=== PATIENT | female | born 2000 | race Caucasian/White ===

== ENCOUNTER 2020-03-06 16:34 | Emergency (ER) | payer OTHER, MEDICAID, SELFPAY ==
[2019-07-20 14:40] VITALS: BMI 18.2
[2020-03-06 16:36] VITALS: BP 124/62; PULSE 102; RESP 16; TEMP 36.3; O2SAT 100; BMI 20.5
--- NOTE | 2020-03-06 17:42 | ED.DCSUM_ITS ---
History of Present Illness Chief Complaint: Nausea/Vomiting Informant: Patient Narrative: Patient states she is approximately 6 weeks (G1, P0) who states that since yesterday she has had uncontrolled nausea and vomiting. No fevers. No rashes. She is scheduled to see RECEIVING CLERK for first appointment March 28. She states that she has tried crackers and fluids but continues to vomit. She did speak with her RECEIVING CLERK who referred her to emergency. Patient denies any vaginal bleeding pelvic pain or leakage of fluid. Past Medical History - Allergies and Home Meds Allergies/Adverse Reactions: Allergies No Known Allergies Allergy (Verified 03/06/20 16:36) Primary Care Physician: Carolina Trivedi MD [Primary Care Provider] - Past Medical History: None Surgical History: noncontributory Smoking Status: Never smoker Alcohol: None Drugs: None Review of Systems General: Denies: Chills, Fever, Sweats Eyes: Denies: Visual changes - bilaterally, Diplopia ENT: Denies: Rhinorrhea, Sore throat Cardiovascular: Denies: Chest pain, Palpitations Respiratory: Denies: Dyspnea, Cough, Dyspnea on exertion Gastrointestinal: Reports: Nausea, Vomiting. Denies: Abdominal pain, Diarrhea, Melena, Hematochezia Genitourinary: Denies: Dysuria, Hematuria, Frequency Musculoskeletal: Denies: Back pain, Extremity Pain Skin: Denies: Rash, Wounds Neurological: Denies: Headache, Weakness, Numbness Physical Exam Vital Signs/Narrative: Vital Signs Temp Pulse Resp BP Pulse Ox 03/06/20 16:36 97.4 F L 102 H 16 124/62 H 100 Inital Vital Signs reviewed: Yes General: Well nourished, Well developed, No Acute Distress Head: Normocephalic, Atraumatic Eyes: Perrl, EOMI ENT: Moist mucous membranes, No rhinorrhea Neck: Supple, Nontender Cardiovascular: Regular rate, No murmurs, Tachycardia Respiratory: No distress, CTA bilaterally, Chest nontender Abdomen: Soft, Nontender, Nondistended, Normal bowel sounds Back: Nontender, Normal Inspection Extremities: Nontender, No edema Skin: Normal color, No rash Neurological: Alert, Oriented x3, Cranial nerves II-XII grossly intact, Normal Strength, Normal Sensation Psychological: Normal affect, Normal Mood Diagnostic/Tx/Re-eval Laboratory Last Values Urine Color Yellow (Yellow) 03/06/20 18:38 Urine Clarity Cloudy (Clear) 03/06/20 18:38 Urine pH 6.0 (5.0 - 8.0) 03/06/20 18:38 Ur Specific [place] 1.020 (1.002-1.030) 03/06/20 18:38 Urine Protein 15 mg/dl (Negative) H 03/06/20 18:38 Urine Glucose (UA) Normal mg/dl (Normal) 03/06/20 18:38 Urine Ketones 150 mg/dl (Negative) H 03/06/20 18:38 Urine Occult Blood 10 /ul (Negative) H 03/06/20 18:38 Urine Nitrite Negative (Negative) 03/06/20 18:38 Urine Bilirubin Negative mg/dL (Negative) 03/06/20 18:38 Urine Urobilinogen Normal mg/dl (Normal) 03/06/20 18:38 Ur Leukocyte Esterase 25 /ul (Negative) H 03/06/20 18:38 Urine RBC 0 SEEN /hpf (0-5) 03/06/20 18:38 Urine WBC 0-5 SEEN /hpf (0-5) 03/06/20 18:38 Ur Squamous Epith Cells 10-25 SEEN /hpf (5-10) 03/06/20 18:38 Urine Bacteria 2+ /hpf (None Seen) 03/06/20 18:38 Urine Mucus 0 SEEN /hpf (<or=2+) 03/06/20 18:38 - Medical Decision Making The patient received Zofran and 2 L of IV fluids. She is tolerating fluids on repeat examination. I will write her Zofran for home. We talked about some of B6. She should follow-up with RECEIVING CLERK. ED Disposition - Plan for ED Patient: Disposition: Home or Assisted Living Diagnosis: Hyperemesis gravidarum Instructions: ED Preg Morning Sickness Prescriptions: Ondansetron [Zofran Odt] 4 mg PO Q6H PRN PRN #20 tab PRN Reason: Nausea Prescription Printed Referrals: Carolina Trivedi MD [Primary Care Provider] - As Needed Additional Instructions: You may try Unisom and B6 for nausea and vomiting.
[2020-03-06] MEDS: Ondansetron 4 MG/2 ML Vial IV (17:46)
[2020-03-06] MEDS: 0.9% Normal Saline 1,000 ML 1000 ML IV ×2 (17:46)
[2020-03-06 18:40] LABS: Mucous, Urine 0 SEEN /hpf (<or=2+); Red Blood Cells-Urine 0 SEEN /hpf (0-5)
[2020-03-06 18:50] LABS: Color, Urine Yellow (Yellow); Glucose, Dipstick Normal (Normal); Leukocyte Esterase-Dipstick 25 /ul (Negative); Nitrite-Dipstick Negative (Negative); Occult Blood-Urine 10 /ul (Negative); Protein-Dipstick 15 mg/dl (Negative); Urine Bilirubin Dipstick Negative (Negative); Urine Clarity Cloudy (Clear); Urine Urobilinogen Normal (Normal)
[2020-03-06 19:07] LABS: Ketone-Dipstick 150 mg/dl (Negative)
[2020-03-06 19:11] LABS: Bacteria 2+ /hpf (None Seen); Squamous Epithelial Cells - UA 10-25 SEEN /hpf (5-10); White Blood Cells 0-5 SEEN /hpf (0-5)
[2020-03-06 19:45] VITALS: RESP 16
== END 2020-03-06 19:57 | disposition home or self-care (01) ==
PROVIDERS: Emergency Provider Emergency Medicine; PCP Pediatrics
DX: O21.0 Mild hyperemesis gravidarum (principal); Z3A.01 Less than 8 weeks gestation of pregnancy
CPT/HCPCS: 81001; 96361; 96374; 99283; J7030; A4216; J2405

== ENCOUNTER 2020-10-23 06:50 | Inpatient (IN) | payer OTHER, MEDICAID, SELFPAY ==
[2020-10-23] VITALS (47 sets, daily range): BP systolic 126–177; BP diastolic 64–103; PULSE 51–206; RESP 16; TEMP 36.2–36.7; O2SAT 80–100; BMI 26.6
[2020-10-23 04:40] LABS: Color, Urine Yellow (Yellow); Glucose, Dipstick Normal (Normal); Ketone-Dipstick Negative (Negative); Leukocyte Esterase-Dipstick 25 /ul (Negative); Nitrite-Dipstick Negative (Negative); Occult Blood-Urine Negative /ul (Negative); Protein-Dipstick 100 mg/dl (Negative); Urine Bilirubin Dipstick Negative (Negative); Urine Clarity Clear (Clear); Urine Urobilinogen Normal (Normal)
[2020-10-23] MEDS: Lactated Ringers 1,000 ML 50 ML IV (07:05)
[2020-10-23 07:24] LABS: Absolute Lymphocyte Count 1.62 X10^3/uL (0.83-4.51); Absolute Neutrophil Count 7.6 X10^3/uL (2.0-7.7); Basophil# 0.03 X10^3/uL; Basophil% 0.3 % (0-1); Hematocrit 36.2 % (37-47); Hemoglobin 11.6 g/dL (12.0-15.0); Lymphocyte # 1.62 X10^3/ul (0.83-4.51); Lymphocyte % 16.1 % (19-41); Mean Corpuscular Hgb 25.2 pg (27.0-32.0); Mean Corpuscular Volume 78.5 fL (81-99); Mean Platelet Vol. 11.1 fl (6.2-12.0); Monocyte# 0.69 X10^3/uL; Monocyte% 6.8 % (0-10); NRBC Flagged by Analyzer 0 % (0-5); Neutrophil # 7.55 X10^3/uL (2.7-7.7); Neutrophil % 74.9 % (47-70); Platelet Count 215 K/mm3 (150-450); RBC Distribution Width CV 13.5 % (11.6-14.6); RBC Distribution Width SD 37.9 fl (35.1-43.9); Red Blood Count 4.61 M/mm3 (4.2-5.4); White Blood Count 10.1 K/mm3 (4.4-11.0)
--- NOTE | 2020-10-23 07:31 | PCM.HP.OB ---
HPI - General General Date of Admission: 10/23/20 HPI Narrative NORA NELSON, is a 19 year old F who presents to triage with contractions. She reports starting to feel cramps yesterday and they increased in pain and frequency through the night. She denies any loss of fluid or vaginal bleeding. Positive movement. Maternal Data Information KALI Calculator Estimated Delivery Date Method Current WG Current Estimate 11/03/20 Manual 38w 3d PFSH PFSH Medical History (Updated 10/23/20 @ 08:18 by Neema Peralta CNM) Asthma Home Medications ondansetron 4 mg PO Q6H PRN PRN #20 tab 03/06/20 [Rx Last Taken Unknown] 1 1 tablet PO/SL DAILY 10/23/20 [History Last Taken 10/22/20 08:00] Allergy/AdvReac Type Severity Reaction Status Date / Time No Known Allergies Allergy Verified 10/23/20 03:15 Surgical History (Updated 10/23/20 @ 05:20 by Karen Yeh) History of surgery Social History (Updated 07/20/19 @ 14:41 by Davey HOLLOWAY, JEWEL) Smoking Status: Never smoker History Elective abortions Hx Para 0 Spontaneous abortions Hx # Term Pregnancies Ectopic pregnancies Hx # Pregnancies Multiple births # of living children NST FHR Rate Baby A Baseline: 130 Variability:: Moderate Accelerations:: 15 x 15 Decelerations:: None NST Reactive:: Yes FHR Category:: Category I Uterine Activity:: 1-4 minutes ROS Eyes Eyes: Denies blurry vision, change in vision or spots in vision ENT HEENT: Denies dizziness or headache(s) Cardiovascular Cardiovascular: Denies abdominal pain, chest pain or dyspnea Respiratory/Chest Respiratory/Chest: Denies cough, dyspnea, shortness of breath at rest or shortness of breath with exertion Gastrointestinal Gastrointestinal: Denies abdominal pain, diarrhea or vomiting Genitourinary Genitourinary: Denies change in urinary stream, difficulty urinating or dysuria Musculoskeletal Musculoskeletal: Reports none Integumentary Integumentary: Denies rash Neurologic Neurologic: Denies dizziness, headache(s), memory loss or weakness Psychiatric Psychiatric: Reports none Vital Signs Vital Signs Vital Signs: 10/23/20 03:21 10/23/20 03:34 10/23/20 06:19 Temperature 97.2 F L 97.2 F L Temperature Source Temporal Temporal Pulse Rate 88 84 Blood Pressure 140/100 H 132/92 H BP Systolic 140 132 BP Diastolic 100 92 Pulse Ox 98 99 10/23/20 06:20 Temperature Temperature Source Pulse Rate 75 Blood Pressure 145/95 H BP Systolic 145 BP Diastolic 95 Pulse Ox Weight Weight: 155 lb 10.342 oz Body Mass Index (BMI) 26.6 Physical Exam Const alert, oriented x3 and no apparent distress General Appearance: cooperative Orientation / Consciousness: awake Exam Limitations: no limitations HEENT normocephalic Head and Scalp: normal to inspection Eyes General Eye: normal appearance of both eyes Neck full ROM and no lymphadenopathy Lymph Lymphatic: no lymphadenopathy noted Chest inspection of chest normal Resp normal respiratory effort, normal air movement and clear to auscultation bilaterally Effort and Inspection: able to speak in complete sentences and symmetric chest movement Cardio regular rate and regular rhythm GI normal to inspection, nondistended, normoactive bowel sounds Manual OB Exam: presentation cephalic, dilated 4, effaced 80 and station 0 Amniotic Fluid: clear amniotic fluid Back/Spine normal ROM Extremity full ROM and no calf tenderness Skin no rashes or lesions noted General Skin Exam: no breakdown Neuro oriented x3 and CN's II-XII intact bilaterally Psych mental status grossly normal and thought process normal Labs Labs Labs: Blood Type O POSITIVE Antibody Screen NEGATIVE Hct 36.2 % (37-47) L Hgb 11.6 g/dL (12.0-15.0) L GBS negative Assessment & Plan (1) 38 weeks gestation of : (2) Spontaneous onset of labor: PLAN: Admit to labor and delivery Routine labs PIH labs drawn due to increase initial BP's GBS negative Cat. [address] Rodriguez notified of admission and is collaborating physician
[2020-10-23 07:59] LABS: AST(SGOT) 17 U/L (15-37); Alanine Aminotransfer ALT/SGPT 13 U/L (13-56); Creatinine, Serum 0.56 mg/dL (0.55-1.02); EST Glomerular Filtration Rate 148 mL/min (>60); Est Glom Filt Rate - Afr Amer 179 mL/min (>60); Estimated Creatinine Clearance 139.53 ml/min; Uric Acid 4.4 mg/dL (2.6-6.0)
[2020-10-23 08:23] LABS: Protein, Urine (Random) 77.8 mg/dL (<11.9); Protein:Creat Ratio 916 mg/g CRE (0-200)
--- NOTE | 2020-10-23 12:30 | PCM.PROGNOTE ---
Subjective Subjective Sitting up in bed, resting with contractions. Rating pain 6/10. Partner and mother at bedside. Denies headache, visual changes, chest pain, SOB or RUQ pain. Objective Data Objective Data Vital Signs: Vital Signs Temp Pulse BP Pulse Ox 97.2 F L 68 144/87 H 99 10/23/20 06:19 10/23/20 12:07 10/23/20 12:07 10/23/20 06:19 Weight: 155 lb 10.342 oz Body Mass Index (BMI) 26.6 Intake & Output: Intake and Output for Last 24 Hours 10/21/20 10/22/20 10/23/20 23:59 23:59 23:59 Intake Total 310.83 / 310.83 Output Total 300 / 300 Balance 10.83 / 10.83 Lab / Micro Data Result Diagrams: 10/23/20 07:05 10/23/20 07:30 Labs: Laboratory Results - last 24 hr 10/23/20 10/23/20 10/23/20 04:30 07:05 07:05 WBC 10.1 RBC 4.61 Hgb 11.6 L Hct 36.2 L MCV 78.5 L MCH 25.2 L MCHC 32.0 RDW Std Deviation 37.9 RDW Coeff of Guevara 13.5 Plt Count 215 MPV 11.1 Immature Gran % (Auto) 0.900 Neut % (Auto) 74.9 H Lymph % (Auto) 16.1 L Terry % (Auto) 6.8 Eos % (Auto) 1.0 Baso % (Auto) 0.3 Absolute Neuts (auto) 7.6 Absolute Lymphs (auto) 1.62 Nucleated RBC % 0 Creatinine Estim Creat Clear Calc Est GFR (MDRD) Af Amer Est GFR (MDRD) Non-Af Uric Acid AST ALT Urine Color Yellow Urine Clarity Clear Urine pH 7.0 Ur Specific [place] 1.010 Urine Protein 100 H Urine Glucose (UA) Normal Urine Ketones Negative Urine Occult Blood Negative Urine Nitrite Negative Urine Bilirubin Negative Urine Urobilinogen Normal Ur Leukocyte Esterase 25 H U Random Total Protein Urine Creatinine Protein/Creatinin Ratio Blood Type O POSITIVE Antibody Screen NEGATIVE 10/23/20 10/23/20 07:30 08:05 WBC RBC Hgb Hct MCV MCH MCHC RDW Std Deviation RDW Coeff of Guevara Plt Count MPV Immature Gran % (Auto) Neut % (Auto) Lymph % (Auto) Terry % (Auto) Eos % (Auto) Baso % (Auto) Absolute Neuts (auto) Absolute Lymphs (auto) Nucleated RBC % Creatinine 0.56 Estim Creat Clear Calc 139.53 Est GFR (MDRD) Af Amer 179 Est GFR (MDRD) Non-Af 148 Uric Acid 4.4 AST 17 ALT 13 Urine Color Urine Clarity Urine pH Ur Specific [place] Urine Protein Urine Glucose (UA) Urine Ketones Urine Occult Blood Urine Nitrite Urine Bilirubin Urine Urobilinogen Ur Leukocyte Esterase U Random Total Protein 77.8 H Urine Creatinine 84.90 Protein/Creatinin Ratio 916 H Blood Type Antibody Screen Micro: Microbiology 10/23/20 07:05 Mucosa - Nasopharyngeal SARS-CoV-2 Antigen (Rapid) - Final Physical Exam Narrative 125, moderate variability, accels, no decels, Category 1 TOCO: every 2-3 minutes Cervix 6/80/-1, AROM for moderate amount of clear fluid Assessment & Plan Assessment/Plan (1) Spontaneous onset of labor: (2) 38 weeks gestation of : (3) Pre-eclampsia affecting childbirth: PLAN: 1) Continue with expectant management 2) Pain management upon request 3) Urine P/C ratio elevated, mild preeclampsia. Asymptomatic. 4) notified of patient status
[2020-10-23] MEDS: fentaNYL 100 MCG/2 ML Ampul IV (14:19)
[2020-10-23] MEDS: Lactated Ringers 500 ML 999 ML IV (14:20)
[2020-10-23] MEDS: fentaNYL-bupivacaine (epidural) 100 ML BAG EPIDURAL (14:49)
[2020-10-23] MEDS: Oxytocin 30 units/NS 500 ml 30 UNITS/500 ML IV.SOLN 334 UNITS IV (16:25)
--- NOTE | 2020-10-23 16:55 | EX.PCM.OBRPT ---
Assessment & Plan (1) (normal spontaneous vaginal delivery): (2) First degree perineal laceration: Maternal Data Information KALI Calculator Estimated Delivery Date Method Current WG Current Estimate 11/03/20 Manual 38w 3d Final KALI: 11/03/20 Final KALI Source: US <20 weeks Gestational age: 38w3d Vaginal Delivery Maternal Presentation Maternal Presentation: Active Labor Operative Information Date of Procedure: 10/23/20 Pre-Operative Diagnosis: Active Labor Post-Operative Diagnosis: Surgery / Procedure Performed: Spontaneous Vaginal Delivery Type of Anesthesia: Epidural Estimated Blood Loss: 300 ml Time of Delivery: 16:19 Findings Description of Procedure: Progressed to complete with strong urge to push. of viable female over first degree perineal laceration. APGARS 8,9. Infant head delivered with nuchal hand, body immediately forthcoming. Infant placed on maternal abdomen, mouth and nares wiped for secretions and bulb suctioned, strong cry. Pitocin started for active 3rd stage management. Placenta delivered intact, via anuel, 3vessel cord with maternal effort. Perineum inspected and revealed first degree perineal laceration, repaired under epidural analgesia and 3.0 vicryl. Hemostasis achieved. Small hematoma forming on right labia majora. Fundus firm. Sponge and instrument count correct, by me. Vaginal sweep completed. Mom and baby stable. Family bonding well. notified. Presentation: Vertex and VIDYA (with nuchal hand) Amniotic Membrane Rupture Type: Artificial Amniotic Fluid Description: Clear Placental Delivery Description: Spontaneous Placenta Disposition: [facility] Cord Vessel Description: 3 Vessels Cord Entanglement: None Infant A Gender: Female (1 minute): 8 (5 minute): 9 Delayed Cord Clamping: Yes Post Vaginal Delivery Medications Given After Delivery: IV Pitocin Episiotomy Description: None Laceration: Perineal Extension/lac and 1st degree Complication Complications: None
[2020-10-23] MEDS: Ibuprofen 600 MG Tablet PO (18:30)
[2020-10-24 05:30] VITALS: BP 117/85; PULSE 77; RESP 16; TEMP 36.4; O2SAT 98
[2020-10-24 05:57] LABS: Hematocrit 31.9 % (37-47); Mean Corp Hgb Conc 31.3 g/dL (32-36); Mean Corpuscular Hgb 25.4 pg (27.0-32.0); Mean Platelet Vol. 11.4 fl (6.2-12.0); Platelet Count 187 K/mm3 (150-450); RBC Distribution Width CV 13.7 % (11.6-14.6); RBC Distribution Width SD 39.6 fl (35.1-43.9); Red Blood Count 3.94 M/mm3 (4.2-5.4); White Blood Count 11.1 K/mm3 (4.4-11.0)
--- NOTE | 2020-10-24 07:55 | PCM.PN.OB ---
Subjective Subjective Patient seen at bedside. Feeling good. Denies any pain. Denies any headaches, vision changes, SOB, or chest pain. Bottle feeding infant. Ambulating and voiding without difficulty. Objective Data Objective Data Vital Signs: Vital Signs Temp Pulse Resp BP Pulse Ox 97.6 F L 77 16 117/85 H 98 10/24/20 05:30 10/24/20 05:30 10/24/20 05:30 10/24/20 05:30 10/24/20 05:30 Oxygen Delivery Method Room Air Weight: 155 lb 10.342 oz Body Mass Index (BMI) 26.6 Intake & Output: Intake and Output for Last 24 Hours 10/22/20 10/23/20 10/24/20 23:59 23:59 23:59 Intake Total 1550.83 / 1550.83 Output Total 600 / 600 500 / 500 Balance 950.83 / 950.83 -500 / -500 Lab / Micro Data Result Diagrams: 10/24/20 05:35 10/23/20 07:30 Labs: Laboratory Results - last 24 hr 10/23/20 10/23/20 10/23/20 07:05 07:30 08:05 WBC RBC Hgb Hct MCV MCH MCHC RDW Std Deviation RDW Coeff of Guevara Plt Count MPV Creatinine 0.56 Estim Creat Clear Calc 139.53 Est GFR (MDRD) Af Amer 179 Est GFR (MDRD) Non-Af 148 Uric Acid 4.4 AST 17 ALT 13 U Random Total Protein 77.8 H Urine Creatinine 84.90 Protein/Creatinin Ratio 916 H Blood Type O POSITIVE Antibody Screen NEGATIVE 10/24/20 05:35 WBC 11.1 H RBC 3.94 L Hgb 10.0 L Hct 31.9 L MCV 81.0 MCH 25.4 L MCHC 31.3 L RDW Std Deviation 39.6 RDW Coeff of Guevara 13.7 Plt Count 187 MPV 11.4 Creatinine Estim Creat Clear Calc Est GFR (MDRD) Af Amer Est GFR (MDRD) Non-Af Uric Acid AST ALT U Random Total Protein Urine Creatinine Protein/Creatinin Ratio Blood Type Antibody Screen Micro: Microbiology 10/23/20 07:05 Mucosa - Nasopharyngeal SARS-CoV-2 Antigen (Rapid) - Final ROS Eyes Eyes: Denies blurry vision, change in vision or spots in vision ENT HEENT: Denies dizziness or headache(s) Cardiovascular Cardiovascular: Denies abdominal pain, chest pain or dyspnea Respiratory/Chest Respiratory/Chest: Denies cough, dyspnea, shortness of breath at rest or shortness of breath with exertion Gastrointestinal Gastrointestinal: Denies abdominal pain, diarrhea or vomiting Genitourinary Genitourinary: Denies change in urinary stream, difficulty urinating or dysuria Musculoskeletal Musculoskeletal: Reports none Integumentary Integumentary: Denies rash Neurologic Neurologic: Denies dizziness, headache(s), memory loss or weakness Psychiatric Psychiatric: Reports none Physical Exam Const alert and no apparent distress General Appearance: cooperative and comfortable Exam Limitations: no limitations HEENT normocephalic Eyes General Eye: normal appearance of both eyes Neck full ROM General: normal visual inspection Chest Chest: symmetrical chest wall rise Resp normal respiratory effort and normal air movement Effort and Inspection: symmetric chest movement Auscultation: clear to auscultation bilaterally Cardio regular rate and regular rhythm GI normal to inspection, nondistended, normoactive bowel sounds Back/Spine normal ROM Extremity full ROM and no calf tenderness General Extremity: normal exam except as noted Skin no rashes or lesions noted Neuro CN's II-XII intact bilaterally Psych mental status grossly normal Assessment & Plan (1) First degree perineal laceration: (2) (normal spontaneous vaginal delivery): (3) Pre-eclampsia affecting childbirth: PLAN: PPD 1 Pre eclampsia -mild continue to monitor BP's Routine care D/C home tomorrow
[2020-10-24 08:23] LABS: Rubella IgG Reactive (Nonreactive)
[2020-10-24 08:39] VITALS: BP 128/78; PULSE 71; RESP 16; TEMP 36.4; O2SAT 98
[2020-10-24 14:23] VITALS: BP 126/75; PULSE 78; RESP 16; TEMP 36.4; O2SAT 99
[2020-10-24] MEDS: Prenatal Vits Tablet 1 TABLET PO (14:27)
--- NOTE | 2020-10-24 15:33 | NURSING ---
Late note: nursery nurse Beka was notified (on 10/23/20 @ 1000) of having gallstones on 10/09/20.Chart stating typically self resoving during first year of life.
[2020-10-24] MEDS: Ibuprofen 600 MG Tablet PO (17:46)
[2020-10-24 17:50] VITALS: BP 133/85; PULSE 91; RESP 18; TEMP 36.1; O2SAT 98
[2020-10-24 20:19] VITALS: BP 120/74; PULSE 70; RESP 16; TEMP 36.9; O2SAT 97
[2020-10-25 02:50] VITALS: BP 134/71; PULSE 75; RESP 16; TEMP 36.9; O2SAT 97
[2020-10-25] MEDS: Acetaminophen 500 MG Tablet 1000 MG PO (06:04)
[2020-10-25] MEDS: Ibuprofen 600 MG Tablet PO (07:32)
[2020-10-25 07:33] VITALS: BP 126/74; PULSE 76; RESP 18; TEMP 36.6; O2SAT 97
--- NOTE | 2020-10-25 08:22 | PCM.PN.OB ---
Subjective Subjective patient seen at bedside, doing well. Patient reports good pain control. lochia mild. bottle feeding. denies AQUINO, visual changes or epigastric pain. Objective Data Objective Data Vital Signs: Vital Signs Temp Pulse Resp BP Pulse Ox 97.8 F 76 18 126/74 H 97 10/25/20 07:33 10/25/20 07:33 10/25/20 07:33 10/25/20 07:33 10/25/20 07:33 Oxygen Delivery Method Room Air Weight: 70.6 kg Body Mass Index (BMI) 26.6 Intake & Output: Intake and Output for Last 24 Hours 10/23/20 10/24/20 10/25/20 23:59 23:59 23:59 Intake Total 1550.83 / 1550.83 Output Total 600 / 600 500 / 500 Balance 950.83 / 950.83 -500 / -500 Lab / Micro Data Result Diagrams: 10/24/20 05:35 10/23/20 07:30 Labs: Laboratory Results - last 24 hr 10/24/20 05:35 Rubella IgG Antibody Reactive Micro: Microbiology 10/23/20 07:05 Mucosa - Nasopharyngeal SARS-CoV-2 Antigen (Rapid) - Final Physical Exam Const alert and oriented x3 General Appearance: cooperative HEENT normocephalic Neck General: normal visual inspection GI soft to palpation and non-distended GI Narrative: Fundus firm Extremity normal to inspection and no calf tenderness Skin no rashes or lesions noted Neuro oriented x3 and CN's II-XII intact bilaterally Psych mental status grossly normal Assessment & Plan (1) Pre-eclampsia affecting childbirth: (2) (normal spontaneous vaginal delivery): (3) First degree perineal laceration: PLAN: PPD# 2 , Doing well Routine care pain mgmt ambulation VS stable- BP well controlled dc home- follow up in office one week for BP check. S/Sx to be aware of for PP PRE E REVIEWED
--- NOTE | 2020-10-25 08:24 | PCM.DC ---
Discharge Instructions Diet Discharge Diet: No restrictions Activity May resume sexual activity in: 6-8 weeks Dressing / Incision Call your doctor if you observe: Fever of 101 or Higher, Inability to urinate, Using more than 1 pad per hour and Uncontrolled pain Follow Up Care Please Follow Up With: Flakita Ron MD When: 1-2 weeks post and again at 6 weeks post . [phone] Test Results: Test results from this visit will be discussed in further detail at your follow-up appointment, if applicable. Discharge Plan Admission Admit Date/Time: 10/23/20 06:50 Attending Provider: Payal Wang Primary Care Provider: Carolina Trivedi Discharge Orders/Prescriptions Prescriptions: New Prenatabs FA 29-1 mg Tablet 1 tab PO LUNCH Qty: 0 RF: 0 acetaminophen 500 mg Tablet 1,000 mg PO Q6H PRN PRN (Reason: Pain 1-10 Or Fever) Qty: 0 RF: 0 ibuprofen 600 mg Tablet 600 mg PO Q6H PRN PRN (Reason: Pain Score 1-3) Qty: 0 RF: 0 Discontinued ondansetron 4 MG tablet 4 mg PO Q6H PRN PRN (Reason: Nausea) Qty: 20 RF: 0 No Action 1 1 tablet PO/SL DAILY RF: 0 Referrals / Follow Up: Carolina Trivedi MD [Primary Care Provider] -
[2020-10-25] MEDS: Prenatal Vits Tablet 1 TABLET PO (11:35)
--- NOTE | 2020-11-06 15:20 | CASEMGMT ---
Social Work Brief Assessment - Labor and Delivery Unit Patient Address: [address] [place] [address]., [place] [address] Phone number: [phone] Date of Referral/Notification: 10/24/2020 Time of Referral: 1508 Referred By: Payal Wang CNM Reason for Referral: Resources Date of Intervention: 10/25/2020 Time of Intervention: 1230 Informant: Medical record and mother of baby (MOB) Unique Bradley; father of baby also present for part of conversation. History: MOB is a 19-year-old single female involved with the reported father of baby (FOB) Michael Quach for the last 6 years. baby girl is the first child for both, and her name is Gracia Quach delivered at 38 weeks gestation. care started at 10 weeks and regular thereafter. Parents live together. 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 The FOB is an electrician deck working on his journeyman's license. MOB denies any history of depression or anxiety. [place] depression screen completed this baby is a score of 4, which is below the threshold for depression. MOB denies any substance use history. No drug screen noted in the medical record. MOB reports to have WIC and connected with job and family services. MOB reports she had help me grow during the but the worker to stop contacting her; does not wish for any referral. Denies any history of domestic violence in this relationship. Assessment: Met with the MOB and FOB together than alone with MOB. Parents cooperative and engaged in conversation. Completed depression screening with the MOB privately and assessed for substance use and domestic violence. MOB and FOB both report to have a good support system from the MOB parents. Reported to have all needed baby supplies, adequate housing, and transportation. Reviewed mood and anxiety disorders, risk factors, and the importance of seeking help and support should symptoms arise. Reviewed safe sleeping and shaken baby prevention. No voiced concerns by nursing staff regarding parent-child interactions or bonding. Provided the parents with a packet on mood and anxiety disorders which includes resources for support. [facility] resource packet also provided. MOB declines a referral to help me grow. MOB identifies having a positive delarosa with the baby. Plan: MOB and will discharge home when ready. MOB has family support available. Community resource information provided for home-going. No further needs requested or indicated. -DEEPTI Larry, TALIA *Information documented is generated via the [employer] system.
== END 2020-10-25 13:15 | disposition home or self-care (01) | DRG 807 ==
LOC: WPOUT 06:55 → WP 06:55
PROVIDERS: Advanced Practice Midwife; Admitting Provider Advanced Practice Midwife; PCP Pediatrics; Visit Provider Advanced Practice Midwife
DX: O14.04 Mild to moderate pre-eclampsia, complicating childbirth (principal); Z37.0 Single live birth; O69.81X0 Labor and delivery complicated by cord around neck, without compression, not applicable or unspecified; O70.0 First degree perineal laceration during delivery; Z3A.38 38 weeks gestation of pregnancy
CPT/HCPCS: 59025; 59050; 81002; 82565; 82570; 84156; 84450; 84460; 84550; 85025; 85027; 86762; 86850; 86900; 86901; 87426; 99218; J7120; G0378